=== PATIENT | female | born 1955 | race Caucasian/White ===

== ENCOUNTER 2018-04-08 16:08 | Inpatient (IN) | payer OTHER ==
[~2018-04-08] VITALS: Ht 170.2 cm; Wt 80.0 kg
[~2018-04-08 16:08] MED LIST: ACTOS45 MG PO; CELEBREX; EXFORGE 10/31 TABLET; FOLIC ACID; GLUCOTROL XL10 MG PO; JANUVIA100 MG; KLOR-CON M1010 MEQ; LANSOPRAZOLE30 MG; LEVEMIR FL100 UNITS/; METFORMIN HCL1000 M1; PAROXETINE HCL30 MG; RISPERIDONE1 MG; RISPERIDONE2 MG; SIMVASTATIN80 MG; TEMAZEPAM15 MG; VITAMIN B-12; VITAMIN D3
[2018-04-08 16:42] LABS: HEMATOCRIT 30.7 % (36.0-46.0); HEMOGLOBIN 10.1 G/DL (11.9-15.5); MCH 27.8 PG (29.0-34.0); MCHC 32.9 G/DL (30.0-36.0); MCV 84.6 FL (83-99); PLATELET COUNT 196 K/uL (156-360); RBC DIS.WIDTH-CV 12.2 % (11.8-14.6); RBC DIS.WIDTH-SD 37.2 % (39-53); RED BLOOD COUNT 3.63 M/uL (3.80-5.20); WHITE BLOOD COUNT 4.1 K/uL (4.1-10.2)
[2018-04-08 16:51] LABS: CHLORIDE 98 mEq/L (99-109); POTASSIUM 4.2 mEq/L (3.7-5.4); SODIUM 134 mEq/L (136-147)
[2018-04-08 16:56] LABS: CREATININE 0.8 mg/dL (0.6-1.3); GFR ESTIMATE (CALCULATED) > 59 mL/min/; SERUM ETHYL ALCOHOL < 10 mg/dL
[2018-04-08 16:57] LABS: UREA NITROGEN (BUN) 12 mg/dL (9-23)
[2018-04-08 16:59] LABS: GLUCOSE 598 mg/dL (70-99)
[2018-04-08 17:20] LABS: CARBON DIOXIDE (BICARBONATE) 30.4 MEQ/L (20-31)
[2018-04-08 17:21] LABS: MAGNESIUM 2.2 mg/dL (1.3-2.7)
[2018-04-08 17:21] LABS: AMPHETAMINE NEGATIVE (500 ng/mL); BARBITURATES NEGATIVE (200 ng/mL); BENZODIAZEPINES NEGATIVE (150 ng/mL); BUPRENORPHINE NEGATIVE (10 ng/mL); COCAINE NEGATIVE (150 ng/mL); METHADONE NEGATIVE (200 ng/mL); METHAMPHETAMINE NEGATIVE (500 ng/mL); OPIATES (MORPHINE) NEGATIVE (100 ng/mL); OXYCODONE NEGATIVE (100 ng/mL); PHENCYCLIDINE NEGATIVE (25 ng/mL); PROPOXYPHENE NEGATIVE (300 ng/mL); THC CANNABINOIDS NEGATIVE (50 ng/mL); TRICYCLIC ANTIDEPRESSANTS NEGATIVE (300 ng/mL)
[2018-04-08 17:25] LABS: PHOSPHORUS 3.1 mg/dL (2.5-4.9)
[2018-04-08 17:34] LABS: TROP-I INTERPRETATION NEGATIVE; TROPONIN-I 0.03 ng/mL (0.0-0.30)
[2018-04-08 17:47] LABS: ALBUMIN 3.7 g/dL (3.2-4.8)
[2018-04-08 17:50] LABS: TOTAL PROTEIN 6.3 g/dL (6.4-8.3)
[2018-04-08 17:52] LABS: TOTAL BILIRUBIN 0.2 mg/dL (0.0-1.0)
[2018-04-08 17:53] LABS: ALKALINE PHOSPHATASE 174 IU/L (3-129)
[2018-04-08 17:56] LABS: ALT (GPT) 11 IU/L (3-49); AST (GOT) 12 IU/L (2-34)
[2018-04-08 20:09] LABS: APPEARANCE CLEAR ((CLEAR)); BILIRUBIN NEGATIVE; BLOOD NEGATIVE; COLOR COLORLESS ((YELLOW)); GLUCOSE (STRIP) >=500; KETONES 5; LEUKOCYTES NEGATIVE; NITRITE NEGATIVE; PROTEIN (STRIP) NEGATIVE; SPECIFIC GRAVITY 1.028 (1.000-1.030); UROBILINOGEN 0.2 MG/DL (0.2-1.0)
[2018-04-09 00:37] VITALS: BP 130/70
[2018-04-09 06:54] LABS: HEMATOCRIT 31.2 % (36.0-46.0); HEMOGLOBIN 9.7 G/DL (11.9-15.5); MCHC 31.1 G/DL (30.0-36.0); MCV 86.9 FL (83-99); PLATELET COUNT 206 K/uL (156-360); RBC DIS.WIDTH-CV 12.3 % (11.8-14.6); RBC DIS.WIDTH-SD 39.3 % (39-53); RED BLOOD COUNT 3.59 M/uL (3.80-5.20); WHITE BLOOD COUNT 3.6 K/uL (4.1-10.2)
[2018-04-09 07:22] LABS: ALBUMIN 3.4 G/DL (3.2-4.8); ALKALINE PHOSPHATASE 78 IU/L (3-129); ALT (GPT) 8 IU/L (3-49); AST (GOT) 10 IU/L (2-34); CHLORIDE 110 MEQ/L (99-109); CREATININE 0.4 MG/DL (0.6-1.3); GFR ESTIMATE (CALCULATED) > 59 mL/min/; LIPASE 13 U/L (1.0-51.0); SODIUM 140 MEQ/L (136-147); TOTAL BILIRUBIN 0.3 MG/DL (0.0-1.0); TOTAL PROTEIN 5.7 G/DL (6.4-8.3); UREA NITROGEN (BUN) 7 mg/dL (9-23)
[2018-04-09 07:26] LABS: GLUCOSE 259 mg/dL (70-99)
[2018-04-09 07:30] VITALS: BP 130/70
[2018-04-09 08:39] LABS: IRON 14 MCG/DL (35-150); TRANSFERRIN (TIBC) 248.3 mg/dL (215-380); TRANSFERRIN SATUR. 6 % (20-55)
[2018-04-09 09:14] LABS: FERRITIN 5 NG/ML (10-291)
[2018-04-09 09:24] LABS: FOLIC ACID (FOLATE) 17.2 NG/ML (5.0-22.0)
[2018-04-09 10:55] LABS: HEMOGLOBIN A1c (GLYCOHEMOGLOB) 12.4 % (Below 5.7)
[2018-04-09 11:33] LABS: STOOL OCCULT BLD 1ST SPECIMEN NEGATIVE
[2018-04-09 15:00] VITALS: BP 126/68
[2018-04-09 23:48] VITALS: BP 129/79
[2018-04-10 06:22] LABS: HEMATOCRIT 31.2 % (36.0-46.0); HEMOGLOBIN 9.8 G/DL (11.9-15.5); MCH 27.3 PG (29.0-34.0); MCHC 31.4 G/DL (30.0-36.0); MCV 86.9 FL (83-99); PLATELET COUNT 209 K/uL (156-360); RBC DIS.WIDTH-CV 12.3 % (11.8-14.6); RBC DIS.WIDTH-SD 39.4 % (39-53); RED BLOOD COUNT 3.59 M/uL (3.80-5.20); WHITE BLOOD COUNT 2.9 K/uL (4.1-10.2)
[2018-04-10 06:52] LABS: ALBUMIN 3.2 G/DL (3.2-4.8); ALKALINE PHOSPHATASE 65 IU/L (3-129); ALT (GPT) 7 IU/L (3-49); AST (GOT) 11 IU/L (2-34); CHLORIDE 107 MEQ/L (99-109); CREATININE 0.3 MG/DL (0.6-1.3); GFR ESTIMATE (CALCULATED) > 59 mL/min/; GLUCOSE 181 mg/dL (70-99); LIPASE 11 U/L (1.0-51.0); POTASSIUM 3.9 MEQ/L (3.7-5.4); SODIUM 138 MEQ/L (136-147); TOTAL PROTEIN 5.3 G/DL (6.4-8.3); UREA NITROGEN (BUN) 5 mg/dL (9-23)
[2018-04-10 06:56] LABS: TOTAL BILIRUBIN 0.2 MG/DL (0.0-1.0)
[2018-04-10 07:24] VITALS: BP 132/78
[2018-04-10] MEDS ORDERED: FERROUS SULFAT325 MG PO (08:58)
[2018-04-10] MEDS ORDERED: ARIPIPRAZOLE10 MG PO (08:58)
[2018-04-10] MEDS ORDERED: CYANOCOBALAM1000 MCG PO (08:59)
[2018-04-10] MEDS ORDERED: GLIPIZIDE5 MG PO (08:59)
[2018-04-10] MEDS ORDERED: METFORMIN HCL1000 M3 PO (09:00)
[2018-04-10 16:26] VITALS: BP 130/69
== END 2018-04-10 18:00 | DRG 638 ==
LOC: EME 16:08 → EDOF 19:54 → 5EAST 19:54 → ENRESERV 19:55 → 5EAST 21:30
PROVIDERS: Emergency Medicine; Family Medicine; Podiatrist Foot & Ankle Surgery
DX: E11.00 Type 2 diabetes mellitus with hyperosmolarity without nonketotic hyperglycemic-hyperosmolar coma (NKHHC) (principal); E46 Unspecified protein-calorie malnutrition; F20.9 Schizophrenia, unspecified; W57.XXXA Bitten or stung by nonvenomous insect and other nonvenomous arthropods, initial encounter; T14.8XXA Other injury of unspecified body region, initial encounter; B88.2 Other arthropod infestations; Z91.14 Patient's other noncompliance with medication regimen; Z91.19 Patient's noncompliance with other medical treatment and regimen; D50.9 Iron deficiency anemia, unspecified; E78.5 Hyperlipidemia, unspecified; Z79.4 Long term (current) use of insulin; I10 Essential (primary) hypertension; Z85.3 Personal history of malignant neoplasm of breast; R19.5 Other fecal abnormalities
CPT/HCPCS: 71045; 74177; 76705; 80048; 80053; 81003; 82272; 82607; 82728; 82746; 82803; 82948; 83036; 83540; 83605; 83690; 83735; 83930; 84100; 84466; 84484; 85027; 87040; 93005; G0480; J1815; J7030

== ENCOUNTER 2018-04-10 17:17 | Inpatient (IN) | payer OTHER ==
[~2018-04-10] VITALS: Ht 170.2 cm; Wt 82.9 kg
[~2018-04-10 17:17] MED LIST changes: +ARIPIPRAZOLE10 MG PO; +CYANOCOBALAM1000 MCG PO; +FERROUS SULFAT325 MG PO; +GLIPIZIDE5 MG PO; +METFORMIN HCL1000 M3 PO
[2018-04-10 18:21] VITALS: BP 146/85
[2018-04-11 07:29] VITALS: BP 130/67
[2018-04-11 15:06] VITALS: BP 145/67
[2018-04-12 07:48] VITALS: BP 156/81
[2018-04-12 16:16] VITALS: BP 137/63
[2018-04-13 07:32] VITALS: BP 140/71
[2018-04-13 16:07] VITALS: BP 113/56
[2018-04-14 07:39] VITALS: BP 131/62
[2018-04-14 16:21] VITALS: BP 132/61
[2018-04-15 07:56] VITALS: BP 116/59
[2018-04-15 16:04] VITALS: BP 146/72
[2018-04-15 19:21] VITALS: BP 147/70
[2018-04-16 07:47] VITALS: BP 139/65
[2018-04-16 16:14] VITALS: BP 146/75
[2018-04-17 08:27] VITALS: BP 111/60
[2018-04-18 08:10] VITALS: BP 132/72
[2018-04-18 16:47] VITALS: BP 143/63
[2018-04-19 07:42] VITALS: BP 117/66
[2018-04-19 16:40] VITALS: BP 152/66
[2018-04-20 07:46] VITALS: BP 145/74
[2018-04-20 16:01] VITALS: BP 141/74
[2018-04-21 07:53] VITALS: BP 161/77
[2018-04-21 16:30] VITALS: BP 147/72
[2018-04-22 08:24] VITALS: BP 152/77
[2018-04-22 16:27] VITALS: BP 156/78
[2018-04-23 07:44] VITALS: BP 114/57
[2018-04-23 16:22] VITALS: BP 178/109
[2018-04-24 07:41] VITALS: BP 118/76
[2018-04-24 15:07] VITALS: BP 144/70
[2018-04-25 07:53] VITALS: BP 143/63
[2018-04-25 15:19] VITALS: BP 140/76
[2018-04-26 07:56] VITALS: BP 143/75
[2018-04-26 15:55] VITALS: BP 134/66
[2018-04-27 08:01] VITALS: BP 146/69
[2018-04-27 16:11] VITALS: BP 141/83
[2018-04-28 07:45] VITALS: BP 177/77
[2018-04-28 15:33] VITALS: BP 157/66
[2018-04-28 18:45] VITALS: BP 155/73
[2018-04-29 07:26] VITALS: BP 171/70
[2018-04-29 14:43] VITALS: BP 117/63
[2018-04-30 08:08] VITALS: BP 121/66
[2018-04-30 16:53] VITALS: BP 137/60
[2018-05-01 08:23] VITALS: BP 164/66
[2018-05-02 08:11] VITALS: BP 161/103
[2018-05-02 15:48] VITALS: BP 138/84
[2018-05-03 07:32] VITALS: BP 143/88
[2018-05-03] MEDS ORDERED: ABILIFY20 MG PO (09:14)
[2018-05-03] MEDS ORDERED: DIVALPROEX SOD500 M1 PO (09:18)
[2018-05-03] MEDS ORDERED: DESYREL 150 MG150 MG PO (09:18)
[2018-05-03] MEDS ORDERED: METFORMIN HCL1000 MG PO (09:18)
[2018-05-03] MEDS ORDERED: GLIPIZIDE5 MG PO (13:03)
== END 2018-05-03 12:45 | disposition home or self-care (01) | DRG 885 ==
LOC: 1WEST 17:17 → ENRESERV 22:09 → 1WEST 22:09
PROVIDERS: Psychiatry & Neurology Psychiatry
DX: F20.3 Undifferentiated schizophrenia (principal); R45.851 Suicidal ideations; E11.9 Type 2 diabetes mellitus without complications; Z59.9 Problem related to housing and economic circumstances, unspecified; G47.00 Insomnia, unspecified; Z85.3 Personal history of malignant neoplasm of breast; Z91.14 Patient's other noncompliance with medication regimen
CPT/HCPCS: 80164; 82948; 97150 GO; 97166 GO; J1815